=== PATIENT | male | born 1970 | race Caucasian/White ===

== ENCOUNTER 2019-10-16 15:52 | Emergency (ER) | payer MEDICARE, OTHER ==
[2019-10-16 16:02] VITALS: RESP 18
[2019-10-16 16:12] VITALS: BP 154/92; PULSE 82; TEMP 99.5
[2019-10-16] MEDS ORDERED: HYDROcodone/APAP 5-325MG 1 EACH TAB PO STA (16:46)
[2019-10-16] MEDS ORDERED: SULFAMETHOX-TMP 800-160MG 1 EACH TAB PO STA (16:54)
[2019-10-16] MEDS ORDERED: traMADol 50 MG STARTER PACK 3 TAB BTL PO STA (17:11)
--- NOTE | 2019-10-16 17:11 | ED ---
Wound/Laceration HPI - General Chief Complaint: Wound/Laceration Stated Complaint: Left arm infection Time Seen by Provider: 10/16/19 16:19 Source: patient Mode of arrival: ambulatory Limitations: no limitations - History of Present Illness Initial Comments: Patient is a 49-year-old male presenting to the emergency Department with complaints of a possible skin infection at his fistula site. Patient states receives dialysis 3 days a week, his last was yesterday. Patient finished a round of clindamycin 1 week ago for similar infection. He states his prior infection did improve. He states the pain and redness started a little bit yesterday that has increased today. He denies any fever or chills, nausea or vomiting. He states he sees Dr. Guaman as his vascular doctor. They did see him one week ago and there was no signs of infection at that point. He has no further complaints at this time. Upon arrival to the ER, his vital signs are st able. - Related Data Previous Rx's Medication Instructions Recorded Sulfamethox-Tmp 800-160Mg [Bactrim 1 each PO Q12HR 10 Days #20 tab 10/16/19 Ds] Allergies Allergy/AdvReac Type Severity Reaction Status Date / Time No Known Allergies Allergy Verified 10/16/19 16:11 Review of Systems ROS Statement: Those systems with pertinent positive or pertinent negative responses have been documented in the HPI. ROS Other: All systems not noted in ROS Statement are negative. Past Medical History Past Medical History: GERD/Reflux History of Any Multi-Drug Resistant Organisms: None Reported Past Surgical History: Section, Orthopedic Surgery Additional Past Surgical History / Comment(s): left hand carpel tunnel release. Past Psychological History: Anxiety, Depression Smoking Status: Never smoker Past Alcohol Use History: None Reported Past Drug Use History: Marijuana General Exam - General Exam Comments Initial Comments: GENERAL: Patient is well-developed and well-nourished. Patient is nontoxic and in no acute distress. HEAD: Atraumatic, normocephalic. EYES: Pupils equal round and reactive to light, extraocular movements intact, sclera anicteric, conjunctiva are normal. Eyelids were unremarkable. ENT: TMs normal, nares patent, oropharynx clear without exudates. Moist mucous membranes. NECK: Normal range of motion, supple without lymphadenopathy or JVD. LUNGS: Unlabored respirations. Breath sounds clear to auscultation bilaterally and equal. No wheezes rales or rhonchi. HEART: Regular rate and rhythm without murmurs, rubs or gallops. ABDOMEN: Soft, nontender, normoactive bowel sounds. No guarding, no rebound. No masses appreciated. : Deferred MUSCULOSKELETAL: Normal extremities with adequate strength and normal range of motion, no pitting or edema. No clubbing or cyanosis. Upper extremities are neurovascular intact. NEUROLOGICAL: Patient is alert and oriented x 3. Normal speech, normal gait. PSYCH: Normal mood, normal affect. SKIN: Warm, Dry, normal turgor. Patient has a fistula present in the right upper arm, there is an area of erythema, pain at the distal end of the fistula, no active discharge. Limitations: no limitations Course Vital Signs 10/16/19 10/16/19 15:59 16:09 Temperature 98.7 F 99.5 F Pulse Rate 92 82 Respiratory 18 18 Rate Blood Pressure 135/89 154/92 O2 Sat by Pulse 99 98 Oximetry Medical Decision Making - Medical Decision Making Patient is a 49-year-old male here for a possible infection near his fistula on the left arm. His vital signs are stable, afebrile. Patient does have some e rythema, pain with palpation at the distal end of his fistula consistent with a cellulitis. Patient was given tablet of Bactrim and [place] in the ER. We did discuss case with Dr. Keane who was okay with this plan of care. They will see him in the office and 1-2 days. We will continue patient on Bactrim and I also sent him with the tramadol starter pack. He is stable for discharge. Patient is in agreement with this plan of care. Return parameters were discussed with the patient and he verbalized understanding. Case discussed with Dr. Benjamin. Disposition Clinical Impression: Left arm cellulitis Disposition: HOME SELF-CARE Condition: Stable Instructions (If sedation given, give patient instructions): Cellulitis (ED) Additional Instructions: Please return to the Emergency Department if symptoms worsen or any other concerns. Take antibiotic as prescribed. Follow-up with vascular doctor as discussed. Prescriptions: Sulfamethox-Tmp 800-160Mg [Bactrim Ds] 1 each PO Q12HR 10 Days #20 tab Is patient prescribed a controlled substance at d/c from ED?: No Referrals: Catalino Funes MD [Primary Care Provider] - 1-2 days Vicente Guaman DO [STAFF PHYSICIAN] - 1-2 days
== END 2019-10-16 17:23 | disposition home or self-care (01) ==
LOC: EC 15:52
DX: L03.114 Cellulitis of left upper limb (principal)
CPT/HCPCS: 99283

== ENCOUNTER → 2021-04-05 | Outpatient (CLI) | payer MEDICARE ==
--- NOTE | 2021-04-08 06:59 | PE ---
EXAMINATION TYPE: PET CT fusion skull to thigh DATE OF EXAM: 04/05/2021 COMPARISON: Outside CT chest and abdomen February 19, [address] 2019 HISTORY: Solitary pulmonary nodule, recent abnormal CT. TECHNIQUE: Following the intravenous administration of mCi of F-18 FDG, whole body images are perfor med from the skull base to the midthigh. Images are reviewed on the computer in the coronal, axial, and sagittal planes. Reconstructed rotating images are created on independent workstation and review ed on the computer. A localization and attenuation correction CT is performed in conjunction with t he PET scan. SCAN: Initial Scan FINDINGS: SKULL BASE AND NECK: No suspicious hypermetabolic lesions or masses. CHEST, MEDIASTINUM, AND HILAR REGION: Corresponding to recent CT there is persistent 1.8 x 1.6 cm lef t lower lobe nodule axial image 114 is new from the 2019 study with mild hypermetabolic uptake, max S UV is 2.85. No additional areas of abnormal hypermetabolic uptake. No suspicious hypermetabolic adenopathy. ABDOMEN AND PELVIS: Mild nonspecific bowel uptake including focal uptake in right sided bowel loop an d inferior liver margin axial image 188. No adrenal masses. No areas of abnormal hypermetabolic uptak e. OSSEOUS STRUCTURES: No suspicious focal hypermetabolic lesions. OTHER CT: Moderate to severe calcified plaque bilateral carotid bulb level. Enlarged pulmonary arteries consistent with underlying pulmonary artery hypertension. Severe three-ve ssel coronary artery calcification and cardiomegaly redemonstrated. Persistent prominent collateral v essels in the left axillary region extending superficially. Overall mosaic attenuation and respiratory motion compromises on current study makes evaluation of maguire bcentimeter nodules seen on prior less well visualized on current exam. Just right of midline anterior Morgagni type hernia containing portion of transverse colon redemonstr ated. Patient has little intra-abdominal fat. Persistent moderate peripheral calcified plaque of the aorta extends into branch vessels. Enlarged prostate consistent with BPH is present. Bladder is poorl y distended with moderate concentric wall thickening presumed from outlet obstruction related to BPH. IMPRESSION: New nodule from 2019 redemonstrated with mild hypermetabolic uptake worrisome for neoplas m. No suspicious adenopathy or metastatic disease is seen.
== END | disposition home or self-care (01) ==
LOC: RADPETMAIN 11:57
PROVIDERS: ATTEND Internal Medicine Critical Care Medicine
DX: R91.1 Solitary pulmonary nodule (principal)
CPT/HCPCS: 78815; A9552

== ENCOUNTER 2021-04-17 10:22 | Day surgery (SDC) | payer MEDICARE ==
[2021-04-16 08:49] VITALS: BMI 25.0
[~2021-04-17 10:22] MED LIST: ALBUTEROL NEB (CONC) 2.5 MG/0.5 ML INHALATION ONE; ATROPINE SULFATE 0.4 MG/ML 1 ML VIAL IM ONE; LIDOCAINE 2% (PF) 20 MG/ML 5 ML VIAL INHALATION ONE; LIDOCAINE VISCOUS 300 MG/15 ML CUP MUCOUS MEM ONE; SODIUM CHLORIDE 0.9% 1,000 ML IV SCH
[2021-04-17] MEDS ORDERED: SODIUM CHLORIDE 0.9% 1,000 ML IV ONE (11:11)
--- NOTE | 2021-04-17 12:14 | CT ---
EXAMINATION TYPE: CT Chest simona Muir Protocol DATE OF EXAM: 04/17/2021 COMPARISON: PET CT April 05, 2021 HISTORY: navigational bronchoscopy. Lung nodule. CT DLP: 697 mGycm Automated exposure control for dose reduction was used. FINDINGS: Exam is for bronchoscopy planning and upper diagnostic purposes. There is moderate emphysematous hernadez ge redemonstrated with persistent mildly hypermetabolic posterior 1.4 cm left lung nodule. Enlarged p ulmonary arteries along with coronary artery calcification and/or stents are redemonstrated. Moderate multilevel spurring in the spine is again seen. IMPRESSION: As above.
[2021-04-17] MEDS ORDERED: fentaNYL (PF) 50 MCG/ML 2 ML AMP ONE (12:40)
[2021-04-17] MEDS ORDERED: MIDAZOLAM 2 MG/2 ML VIAL ONE (12:40)
[2021-04-17] MEDS ORDERED: PROPOFOL 10 MG/ML 20 ML VIAL IV ONE (12:40)
[2021-04-17] MEDS ORDERED: NEOSTIGMINE 1 MG/ML 10 ML VIAL ONE (12:40)
[2021-04-17] MEDS ORDERED: ROCURONIUM 10 MG/ML (5 ML VIAL) IV ONE (12:40)
[2021-04-17] MEDS ORDERED: GLYCOPYRROLATE 0.2 MG/ML 2 ML VIAL ONE (12:40)
[2021-04-17 13:59] VITALS: TEMP 97.2
[2021-04-17 14:20] VITALS: RESP 16
--- NOTE | 2021-04-17 14:32 | XR ---
EXAMINATION TYPE: XR chest 1V portable DATE OF EXAM: 04/17/2021 HISTORY: Shortness of breath. COMPARISON: None. TECHNIQUE: Single view of the chest is submitted. FINDINGS: Demonstrated are scattered senescent parenchymal change. Increased density right medial lung base may reflect atelectasis or developing infiltrate. Correlate clinically. The heart is stable. Hilar and mediastinal structures are within normal limits. Degenerative changes are seen of the dorsal spine. IMPRESSION: 1. Chronic changes without evidence for acute pulmonary disease.
[2021-04-17 15:00] VITALS: BP 159/83; PULSE 77
[2021-04-17 23:29] LABS: Appearance,BF Blood Tinged
== END 2021-04-17 15:13 | disposition home or self-care (01) ==
LOC: ORWHC2ENDO 10:22
PROVIDERS: ATTEND Internal Medicine Critical Care Medicine
DX: R91.1 Solitary pulmonary nodule (principal)
CPT/HCPCS: 31625; 31623; 31624; 31627; 88104; 88108; 88305; 89050; 84132; 87070; 87205; 71045; 71250; J2250; J2710; J3010; J2704

== ENCOUNTER → 2021-05-17 | Outpatient (CLI) | payer MEDICARE, OTHER ==
[2021-05-17 11:49] LABS: INR 0.9 (<1.2); Prothrombin Time 9.6 sec (9.0-12.0)
[2021-05-17 14:54] LABS: African American GFR (CKD) 11.1 (60.0-200.0); Anion Gap 15.4 mmol/L (10.00-18.00); Blood Urea Nitrogen 34.2 mg/dL (9.0-27.0); Carbon Dioxide 26.6 mmol/L (20.0-27.5); Non-African American GFR(CKD) 9.6 (60.0-200.0); Potassium 5.6 mmol/L (3.5-5.5)
[2021-05-17 15:12] LABS: Basophils # (A) 0.09 X 10*3/uL (0.00-0.10); Basophils % (A) 1.1 %; Eosinophils % (A) 1.2 %; HCT 31.2 % (39.6-50.0); HGB 10.2 g/dL (13.0-17.0); Immature Grans, Automated 0.5 %; Lymphocytes # (A) 1.96 X 10*3/uL (0.90-5.00); Lymphocytes % (A) 23.6 %; MCH 34.2 pg (27.0-32.0); MCHC 32.7 g/dL (32.0-37.0); MCV 104.7 fL (80.0-97.0); Mean Platelet Volume 10.2 fL (9.5-12.2); Monocytes # (A) 0.75 X 10*3/uL (0.20-1.00); NRBC Per 100 WBC 0 /100 WBCS (0.0-0.0); Neutrophils # (A) 5.35 X 10*3/uL (1.80-7.70); Neutrophils % (A) 64.6 %; Platelet Count 222 X 10*3/uL (140-440); RBC 2.98 X 10*6/uL (4.40-5.60); RDW 13.6 % (11.5-14.5); WBC 8.29 X 10*3/uL (4.50-10.00)
== END | disposition home or self-care (01) ==
LOC: LABPAT 10:59
PROVIDERS: ATTEND Thoracic Surgery (Cardiothoracic Vascular Surgery)
DX: Z01.812 Encounter for preprocedural laboratory examination (principal); I10 Essential (primary) hypertension; E86.0 Dehydration; R58 Hemorrhage, not elsewhere classified; R91.1 Solitary pulmonary nodule; Z79.899 Other long term (current) drug therapy
CPT/HCPCS: 80051; 82565; 82947; 84520; 85025; 85610; 85730

== ENCOUNTER 2021-05-22 08:21 | Inpatient (IN) | payer MEDICARE, OTHER ==
[2021-05-21 08:38] VITALS: BMI 25.0
[2021-05-22] MEDS ORDERED: SODIUM CHLORIDE 0.9% 1,000 ML IV ONE ×2 (09:15→09:18)
[2021-05-22] MEDS ORDERED: ONDANSETRON 4 MG/2 ML VIAL IVP ONE (09:19)
[2021-05-22 09:27] LABS: Basophils # (A) 0.1 k/uL (0-0.2); Basophils % (A) 1 %; Eosinophils # (A) 0.2 k/uL (0-0.7); Eosinophils % (A) 2 %; HCT 36.1 % (39.0-53.0); HGB 11.9 gm/dL (13.0-17.5); Lymphocytes # (A) 1.9 k/uL (1.0-4.8); Lymphocytes % (A) 25 %; MCH 34.4 pg (25.0-35.0); MCHC 33.1 g/dL (31.0-37.0); MCV 104.1 fL (80.0-100.0); Macrocytosis Slight; Mean Platelet Volume 7.6; Monocytes # (A) 0.5 k/uL (0-1.0); Monocytes % (A) 7 %; Neutrophils % (A) 64 %; Platelet Count 228 k/uL (150-450); RBC 3.46 m/uL (4.30-5.90); RDW 13.3 % (11.5-15.5); WBC 7.8 k/uL (3.8-10.6)
[2021-05-22] MEDS ORDERED: ONDANSETRON 4 MG/2 ML VIAL ONE (09:27)
[2021-05-22 09:50] LABS: Calcium 8.7 mg/dL (8.4-10.2); Potassium 5.7 mmol/L (3.5-5.1)
[2021-05-22] MEDS ORDERED: ALBUTEROL NEBULIZED 2.5 MG/3 ML INHALATION STA (10:09)
[2021-05-22] MEDS ORDERED: MIDAZOLAM 2 MG/2 ML VIAL ONE (10:46)
[2021-05-22] MEDS ORDERED: ROCURONIUM 10 MG/ML (5 ML VIAL) IV ONE (10:46)
[2021-05-22] MEDS ORDERED: fentaNYL (PF) 50 MCG/ML 2 ML AMP ONE (10:46)
[2021-05-22] MEDS ORDERED: PROPOFOL 10 MG/ML 20 ML VIAL IV ONE (10:46)
[2021-05-22] MEDS ORDERED: DEXAMETHASONE SOD PHOSPHATE 10 MG/ML 1 ML VIAL ONE (10:46)
[2021-05-22] MEDS ORDERED: HYDROmorphone (PF) 1 MG/ML ONE (10:46)
[2021-05-22] MEDS ORDERED: LIDOCAINE 1% INJ 10MG/ML (20 ML MDV) ONE (10:46)
[2021-05-22] MEDS ORDERED: BUPIVACAINE (PF) 0.5% 30 ML VIAL SQ ONE ×2 (11:35→12:27)
[2021-05-22] MEDS ORDERED: SODIUM CHLORIDE 0.9% 500 ML 500 ML IV ONE (12:00)
--- NOTE | 2021-05-22 13:38 | XR ---
EXAMINATION TYPE: XR chest 1V portable DATE OF EXAM: 05/22/2021 COMPARISON: 04/17/2021 INDICATION: Post VATS TECHNIQUE: Single frontal view of the chest is obtained. FINDINGS: The heart size is mildly prominent. The pulmonary vasculature is normal. Left lung base increased density is present. Correlate for eventration or hernia. Atelectasis or pneu monia can be considered. Chest tube is present on the left. Pneumothorax is not identified. IMPRESSION: 1. Left-sided chest tube. No pneumothorax is evident. 2. Right lower lobe infiltrate or eventration of the diaphragm.
[2021-05-22] MEDS ORDERED: HYDROmorphone 0.5 MG/0.5 ML SYRINGE IVP ONE (14:05)
--- NOTE | 2021-05-22 14:17 | P.OP ---
Date of Procedure: 05/22/21 Preoperative Diagnosis: Left lower lobe pulmonary nodule suspicious for malignancy, history of melanoma of right nose. Postoperative Diagnosis: Same Procedure(s) Performed: Right thoracoscopy, wedge resection mass left lower lobe Anesthesia: GEMINIA Surgeon: Al Kaur Estimated Blood Loss (ml): 10 IV fluids (ml): 500 Urine output (ml): 0 Pathology: other (Wedge resection left lower lobe sent for frozen section and permanent section) Condition: stable Disposition: PACU Indications for Procedure: 51-year-old male with long-term history of smoking. He had a known adenoma resected from his nose less than 2 years prior. He was found to have a new left lower lobe nodule. Resection was requested by Dr. Carrillo. Patient has not had a needle biopsy. Bronchoscopy was nondiagnostic. He has no evidence of metastatic disease other than the single nodule. This is not clear whether this represents primary lung cancer for which the patient is clearly at risk or solitary metastasis from his melanoma. The patient was offered needle biopsy but did not want to undergo a procedure that did not involve anesthetic. Wedge resection was therefore recommended and will be more likely to be completely diagnostic. It was explained to the patient that should this prove to be lung cancer, the patient would need further workup and likely a left lower lobectomy. Elective surgery was scheduled. Operative Findings: Intubation was challenging. Successfully intubated the patient using the glide scope and passing a pediatric bronchoscope through the cords under direct visualization with the glide scope and then advancing 41 double-lumen endotracheal tube over the bronchoscope and into the airway. Nodule was identified in the left lower lobe. It was fairly deep and posterior. Initial wedge resection did not reveal the nodule and further wedge resection did reveal the nodule. Nodule was sent for frozen section and was probably positive for malignancy. It could not be determined with melanoma or lung cancer on frozen section. Margins were grossly negative. No other lung nodules were noted. Description of Procedure: Patient was brought to the operating room and placed supine on the operating table. An Olympus anesthesia was induced. Initial attempts at intubation were unsuccessful. An 8 endotracheal tube was placed successfully into the airway and the patient was ventilated. Using the glide scope and direct visualization we attempted to exchange the 8 endotracheal tube for a 41 dual double-lumen tube with the tube exchanger was not long enough. We then tried to pass the 41 endotracheal tube but could not pass the cords despite good visualization. We bagged the patient and then successfully intubated the patient by advancing 41 endotracheal tube over a bronchoscope placed through the cords under visualization with the glide scope. Tube was appropriately positioned under bronchoscopic visualization and secured. Patient was turned in the right lateral decubitus position and the left chest was sterilely prepped and draped. 3 one-inch incisions were made in the left chest inferiorly and anteriorly. The lung was explored. It was very difficult to accurately assess the exact location of the mass. A generous wedge resection of the left lower lobe was performed in the area suspected to have the mass in on removal of this there was no evidence of the mass in the wedge resection. Multiple firings of Endo VICKIE medium thick stapler were used for this wedge resection and it was removed in an Endo Catch bag. Following this further resection was performed deeper into the left upper lobe posteriorly and a thick stapler was used for these firings. A second wedge resection of the lung was then removed and the nodule was evident within it. It was cut on the back table and a small portion set aside for possible culture and then the lesion was sent for frozen section. It returned positive for malignancy. We therefore did not send any cultures. 28-St Helenian chest tube was placed through separate stab incision and positioned posterior apically. The lung was inflated under thoracoscopic visualization. Incisions were closed with layers of Vicryl suture. In glue and dry sterile dressings were applied. Chest tube was secured with an 0 silk suture and chest tube dressing applied. Patient was turned supine and extubated and transferred to recovery in stable condition.
[2021-05-22] MEDS ORDERED: IPRATROPIUM-ALBUTEROL 3 ML NEB IH PRN (14:31)
[2021-05-22] MEDS ORDERED: ACETAMINOPHEN TAB 325 MG TAB PO PRN (14:31)
[2021-05-22] MEDS ORDERED: ONDANSETRON 4 MG/2 ML VIAL IVP PRN (14:31)
[2021-05-22] MEDS: DEXTROSE 5%-0.45% NACL 1,000 ML IV SCH (16:00)
[2021-05-22] MEDS: SEVELAMER 800 MG TAB PO SCH ×2 (16:00→16:02)
[2021-05-22] MEDS: traMADol 50 MG TAB PO PRN (16:03)
[2021-05-22] MEDS: HEPARIN SODIUM,PORCINE/PF 5,000 UNIT/0.5 ML SYRINGE SQ SCH ×2 (16:03→23:13)
[2021-05-22] MEDS: NICOTINE 14MG/24HR PATCH TRANSDERM SCH (17:06)
[2021-05-22] MEDS: HYDROmorphone 0.5 MG/0.5 ML SYRINGE IVP PRN ×2 (17:07→23:13)
[2021-05-22] MEDS ORDERED: traMADol 50 MG TAB PO SCH (18:00)
[2021-05-22] MEDS: KETOROLAC 15 MG/ML 1 ML VIAL IVP PRN (18:46)
[2021-05-22] MEDS: IPRATROPIUM-ALBUTEROL 3 ML NEB IH SCH ×2 (19:03→19:04)
[2021-05-23] MEDS: traMADol 50 MG TAB PO PRN ×4 (03:02→23:13)
[2021-05-23] MEDS: KETOROLAC 15 MG/ML 1 ML VIAL IVP PRN ×2 (06:44→19:45)
[2021-05-23] MEDS: SEVELAMER 800 MG TAB PO SCH ×3 (06:44→16:58)
[2021-05-23 07:54] LABS: Basophils # (A) 0.1 k/uL (0-0.2); Basophils % (A) 1 %; Eosinophils # (A) 0.1 k/uL (0-0.7); Eosinophils % (A) 1 %; HCT 32.5 % (39.0-53.0); Lymphocytes # (A) 1.6 k/uL (1.0-4.8); Lymphocytes % (A) 17 %; MCH 35.2 pg (25.0-35.0); MCHC 33.8 g/dL (31.0-37.0); MCV 104.1 fL (80.0-100.0); Macrocytosis Slight; Mean Platelet Volume 7.6; Monocytes # (A) 0.5 k/uL (0-1.0); Monocytes % (A) 6 %; Neutrophils # (A) 6.6 k/uL (1.3-7.7); Neutrophils % (A) 74 %; Platelet Count 199 k/uL (150-450); RBC 3.12 m/uL (4.30-5.90); RDW 13.3 % (11.5-15.5)
[2021-05-23] MEDS: HEPARIN SODIUM,PORCINE/PF 5,000 UNIT/0.5 ML SYRINGE SQ SCH ×3 (08:05→23:13)
[2021-05-23] MEDS: NICOTINE 14MG/24HR PATCH TRANSDERM SCH (08:05)
[2021-05-23] MEDS: LOSARTAN 25 MG TAB PO SCH (08:05)
[2021-05-23 08:10] LABS: Calcium 8.4 mg/dL (8.4-10.2); Potassium 5.7 mmol/L (3.5-5.1)
[2021-05-23] MEDS: IPRATROPIUM-ALBUTEROL 3 ML NEB IH SCH ×4 (08:51→20:57)
[2021-05-23] MEDS ORDERED: LIDOCAINE-PRILOCAINE 2.5-2.5% CREAM 5 GM TUBE TOPICAL STA (09:23)
[2021-05-23] MEDS: HYDROmorphone 0.5 MG/0.5 ML SYRINGE IVP PRN (09:48)
--- NOTE | 2021-05-23 09:49 | XR ---
EXAMINATION TYPE: XR chest 1V DATE OF EXAM: 05/23/2021 COMPARISON: 05/22/2021 INDICATION: Post VATS TECHNIQUE: Single frontal view of the chest is obtained. FINDINGS: The heart size is normal. The pulmonary vasculature is normal. Appears to be a focal eventration of the air-filled loop of bowel in right lower medial diaphragm. Ap pears improved from prior study. Underlying pneumonia is considered less likely. Left-sided chest tub e remains in position. Small left apical pneumothorax is identified. IMPRESSION: 1. Small left apical pneumothorax now identified. A Red level critical message alert has been initiated for Bre Dinero via the [employer] Results System on 05/23/2021 9:46 AM. This message alert has been sent to Bre Dinero via the prefe rences provided by the clinician for the receipt of Radiology Critical Findings. Message ID [id number].
--- NOTE | 2021-05-23 10:52 | P.PN ---
Subjective Progress Note Date: 05/23/21 Principal diagnosis: Left lower lobe pulmonary nodule suspicious for malignancy. Previous medical history of melanoma of the right nose with resection little over a year ago, current tobacco dependence, hypertension, chronic renal failure on hemodialysis Thursday//Thursday, arthritis. Vaccinated against Covid POD #1 right thoracoscopy, wedge resection mass left lower lobe The patient was seen and examined this morning sitting up in bed in no acute distress although does still complain of significant pain from surgery. States he is unable to take deep breaths due to pain. Remains hemodynamically stable. Minimal output overnight in the chest tube, no air leak present, was placed to waterseal yesterday. Currently about to receive hemodialysis. No other new concerns. Objective - Vital Signs Vital signs: Vital Signs Temp 97.9 F 05/23/21 08:00 Pulse 81 05/23/21 08:00 Resp 17 05/23/21 08:00 BP 160/78 05/23/21 08:00 Pulse Ox 97 05/23/21 08:00 Intake & Output 05/22/21 05/23/21 05/23/21 18:59 06:59 18:59 Intake Total 1600 Output Total 10 200 Balance 1590 -200 Weight 80.9 kg Intake: IV 1600 Output: Chest Tube Drainage 200 Chest Tube Left Lateral 200 Chest Estimated Blood Loss 10 - Exam CONSTITUTIONAL: Appears comfortable, cooperative, no acute distress RESPIRATORY: Lungs sounds diminished bilaterally. Respirations even, nonlabored. Currently on room air with oxygen saturation 97%. Able to achieve 500 mL on incentive spirometry. Strong cough. CARDIOVASCULAR: S1, S2 present. Regular rate and rhythm, sinus rhythm on telemetry. Palpable peripheral pulses bilaterally. No edema present. No calf pain or tenderness noted. GASTROINTESTINAL: Abdomen soft, nontender, nondistended. Active bowel sounds present 4 quadrants. Tolerating diet. Positive bowel movement. GENITOURINARY: Left upper forearm AV fistula present for dialysis INTEGUMENTARY: Skin is warm and dry with evidence of good perfusion. NEUROLOGIC: Cranial nerves II through XII intact MUSKULOSKELETAL: Able to move all extremities, strength equal bilaterally, gait normal PSYCHIATRIC: Alert and oriented to person place and time, appropriate affect, intact judgment and insight INVASIVE LINES AND TUBES: Left pleural chest tube present to waterseal, 50 mL serosanguineous drainage overnight, 300 mL since surgery - Allied health notes Allied health notes reviewed: nursing - Labs CBC & Chem 7: 05/23/21 07:32 05/23/21 07:32 Labs: Abnormal Lab Results - Last 24 Hours (Table) 05/23/21 05/23/21 Range/Units 07:32 07:32 RBC 3.12 L (4.30-5.90) m/uL Hgb 11.0 L (13.0-17.5) gm/dL Hct 32.5 L (39.0-53.0) % MCV 104.1 H (80.0-100.0) fL MCH 35.2 H (25.0-35.0) pg Sodium 135 L (137-145) mmol/L Potassium 5.7 H (3.5-5.1) mmol/L BUN 59 H (9-20) mg/dL Creatinine 9.24 H* (0.66-1.25) mg/dL - Imaging and Cardiology Chest x-ray: report reviewed, image reviewed Assessment and Plan Assessment: 1. Left lower lobe pulmonary nodule suspicious for malignancy, status post right thoracoscopy, wedge resection of mass left lower lobe 2. History of melanoma of the right nose with resection little over a year ago 3. Current tobacco dependence 4. Hypertension 5. Chronic renal failure on hemodialysis Thursday//Thursday 6. Arthritis 7. Vaccinated against Covid Plan: 1. Left pleural chest tube discontinued without incident, pathology still pending 2. To receive dialysis today, continue dialysis Thursday//Thursday as per his normal schedule 3. Increase activity, ambulate as tolerated 4. Will repeat chest x-ray later today versus tomorrow 5. Pain control with current medication regimen 6. Incentive spirometry encouraged 7. Smoking cessation counseling offered, encourage complete smoking cessation. Placed on nicotine patch 8. Discharge planning in progress. Anticipate discharge to home later today versus tomorrow morning
[2021-05-23] MEDS: DEXTROSE 5%-0.45% NACL 1,000 ML IV SCH (11:02)
--- NOTE | 2021-05-23 11:36 | P.NPCON ---
History of Present Illness - Reason for Consult end stage renal disease - History of Present Illness Patient is a 50-year-old male with end-stage renal disease on hemodialysis on a Thursday schedule. He was admitted to the hospital for thoracoscopy and wedge resection of the left lower lung. Patient was noted to have a suspicious lung nodule. This morning patient is doing well. He has not eaten yet. Chest tube came out this morning. Patient will be dialyzed today No fever cough nausea vomiting abdominal pain or diarrhea Past Medical History Past Medical History: Cancer, Dialysis, GERD/Reflux, Hypertension, Renal Disease Additional Past Medical History / Comment(s): Kidney disease, hx. of skin cancer. hemo dialysis [facility] History of Any Multi-Drug Resistant Organisms: None Reported Past Surgical History: Back Surgery, Orthopedic Surgery Additional Past Surgical History / Comment(s): left hand carpel tunnel release. Fistula left upper arm for dialysis. bronchoscopy, cervical fusion Past Anesthesia/Blood Transfusion Reactions: No Reported Reaction Smoking Status: Current every day smoker - Past Family History Mother Family Medical History: No Reported History Medications and Allergies Home Medications Medication Instructions Recorded Confirmed Type Sevelamer [Renvela] 1,600 mg PO AC-TID 04/16/21 05/22/21 History Auryxia 210 mg PO TID 04/17/21 05/22/21 History Losartan [Cozaar] 25 mg PO DAILY 04/17/21 05/22/21 History Allergies Allergy/AdvReac Type Severity Reaction Status Date / Time No Known Allergies Allergy Verified 05/22/21 09:09 Physical Exam Vitals: Vital Signs Temp Pulse Pulse Resp BP Pulse Ox 05/23/21 08:00 97.9 F 81 17 160/78 97 05/23/21 03:17 98.5 F 80 20 148/78 96 05/23/21 01:32 87 05/22/21 23:11 87 18 146/79 95 05/22/21 20:00 88 20 05/22/21 19:27 98.7 F 88 20 165/85 97 05/22/21 19:18 80 05/22/21 19:04 84 05/22/21 18:37 89 22 05/22/21 16:00 98.3 F 89 22 163/88 94 L 05/22/21 14:32 89 16 133/67 99 05/22/21 14:16 86 16 149/70 100 05/22/21 14:00 85 16 140/72 100 05/22/21 13:44 85 16 156/73 100 05/22/21 13:26 85 16 154/73 100 05/22/21 13:11 86 16 168/77 100 05/22/21 12:57 96.7 F L 85 16 154/73 100 Intake and Output 05/22/21 05/23/21 05/23/21 22:59 06:59 14:59 Output Total 100 100 Balance -100 -100 Output: Chest Tube Drainage 100 100 Chest Tube Left Lateral 100 100 Chest Patient is awake, comfortable, not in any acute distress Examination of the heart S1 and S2 Examination lungs bilateral breath sounds are heard Abdomen is soft nontender Examination lower extremities shows no evidence of edema in his exam grossly intact Results - Lab Results Most recent lab results Calcium 8.4 mg/dL (8.4-10.2) 05/23/21 07:32 05/23/21 07:32 05/23/21 07:32 Assessment and Plan Assessment: 1. End-stage renal disease on hemodialysis on a Thursday schedule via left arm AV fistula 2. Left lung nodule status post thoracoscopy and wedge resection of the left lower lobe 3. CK D mineral bone disorder 4. Tobacco dependence 5. Hypertension with CK D stage 5 Plan: Hemodialysis today. Goal UF half to 1 L Patient is stable for discharge if cleared from cardiac thoracic surgery.
--- NOTE | 2021-05-23 12:42 | P.CNPUL ---
History of Present Illness Consult date: 05/23/21 Requesting physician: Al Kaur Reason for consult: abnormal CXR/CT Chief complaint: Left lower lobe pulmonary nodule History of present illness: This is a very pleasant 51-year-old male patient with known history of chronic tobacco dependence, hypertension, chronic renal failure receiving hemodialysis Thursday', melanoma resected on his nose 2 years ago. He was recently found to have 80 left lower lobe pulmonary nodule. Suspicious for malignancy. He did undergo navigational bronchoscopy that was nondiagnostic. He follows with Dr. Lentz in our clinic who referred him to Dr. Kaur for a wedge resection of the mass of the left lower lobe. He did undergo that p rocedure yesterday. His chest x-ray showed a tiny left apical pneumothorax. Left-sided chest tube was in good position and subsequently discuss this morning without incident. He is currently receiving hemodialysis. He sitting up in bed. Awake and alert in no acute distress. He is maintaining good O2 saturations in the mid 90s on room air. He's been afebrile. Hemodynamically stable. He is working with the incentive spirometer. He remains on bronchodilators. Heparin for DVT prophylaxis. His pain is well controlled. NicoDerm patch in place. White count 9.0. Hemoglobin 11.0. Platelets 199. Sodium 135. Potassium 5.7. BUN 59. Creatinine 9.24. Review of Systems REVIEW OF SYSTEMS: CONSTITUTIONAL: Denies any recent significant weight loss or weight gain. EYES: Denies change in vision. EARS, NOSE, MOUTH, THROAT: Denies headaches, denies sore throat. CARDIOVASCULAR: Left surgical site pain, no palpitations or syncopal episodes. RESPIRATORY: Denies shortness of breath, cough, congestion or hemoptysis. GASTROINTESTINAL: Denies change in appetite, denies abdominal pain GENITOURINARY: Denies hematuria, denies infections. MUSKULOSKELETAL: Denies pain, denies swelling. INTEGUMENTARY: Denies rash, denies eczema. NEUROLOGICAL: Denies recent memory loss, no recent seizure activity. PSYCHIATRIC: Denies anxiety, denies depression. HEMATOLOGIC/LYMPHATIC: Denies anemia, denies enlarged lymph nodes. Past Medical History Past Medical History: Cancer, Dialysis, GERD/Reflux, Hypertension, Renal Disease Additional Past Medical History / Comment(s): Kidney disease, hx. of skin cancer. hemo dialysis [facility] History of Any Multi-Drug Resistant Organisms: None Reported Past Surgical History: Back Surgery, Orthopedic Surgery Additional Past Surgical History / Comment(s): left hand carpel tunnel release. Fistula left upper arm for dialysis. bronchoscopy, cervical fusion Past Anesthesia/Blood Transfusion Reactions: No Reported Reaction Smoking Status: Current every day smoker - Past Family History Mother Family Medical History: No Reported History Medications and Allergies Home Medications Medication Instructions Recorded Confirmed Type Sevelamer [Renvela] 1,600 mg PO AC-TID 04/16/21 05/22/21 History Auryxia 210 mg PO TID 04/17/21 05/22/21 History Losartan [Cozaar] 25 mg PO DAILY 04/17/21 05/22/21 History Allergies Allergy/AdvReac Type Severity Reaction Status Date / Time No Known Allergies Allergy Verified 05/22/21 09:09 Physical Exam Vitals: Vital Signs Temp Pulse Pulse Resp BP Pulse Ox 05/23/21 08:00 97.9 F 81 17 160/78 97 05/23/21 03:17 98.5 F 80 20 148/78 96 05/23/21 01:32 87 05/22/21 23:11 87 18 146/79 95 05/22/21 20:00 88 20 05/22/21 19:27 98.7 F 88 20 165/85 97 05/22/21 19:18 80 05/22/21 19:04 84 05/22/21 18:37 89 22 05/22/21 16:00 98.3 F 89 22 163/88 94 L 05/22/21 14:32 89 16 133/67 99 05/22/21 14:16 86 16 149/70 100 05/22/21 14:00 85 16 140/72 100 05/22/21 13:44 85 16 156/73 100 05/22/21 13:26 85 16 154/73 100 05/22/21 13:11 86 16 168/77 100 05/22/21 12:57 96.7 F L 85 16 154/73 100 Intake and Output 05/22/21 05/23/21 05/23/21 22:59 06:59 14:59 Output Total 100 100 Balance -100 -100 Output: Chest Tube Drainage 100 100 Chest Tube Left Lateral 100 100 Chest GENERAL EXAM: Alert, pleasant 51-year-old male patient, on room air, fairly comfortable in no apparent distress. HEAD: Normocephalic. EYES: Normal reaction of pupils, equal size. NOSE: Clear with pink turbinates. THROAT: No erythema or exudates. NECK: No masses, no JVD. CHEST: No chest wall deformity. Surgical dressing dry and intact. LUNGS: Equal air entry with no crackles, wheeze, rhonchi or dullness. Diminished. CVS: S1 and S2 normal with no audible murmur, regular rhythm. ABDOMEN: No hepatosplenomegaly, normal bowel sounds, no guarding or rigidity. SPINE: No scoliosis or deformity SKIN: No rashes CENTRAL NERVOUS SYSTEM: No focal deficits, tone is normal in all 4 extremities. EXTREMITIES: Left upper extremity AV fistula in place. There is no peripheral edema. No clubbing, no cyanosis. Peripheral pulses are intact. Results - Laboratory Findings CBC and BMP: 05/23/21 07:32 05/23/21 07:32 Abnormal lab findings: Abnormal Labs 05/22/21 05/22/21 05/23/21 09:15 09:15 07:32 RBC 3.46 L 3.12 L Hgb 11.9 L 11.0 L Hct 36.1 L 32.5 L MCV 104.1 H 104.1 H MCH 35.2 H Sodium 135 L Potassium 5.7 H Chloride 95 L BUN 44 H Creatinine 7.34 H* 05/23/21 07:32 RBC Hgb Hct MCV MCH Sodium 135 L Potassium 5.7 H Chloride BUN 59 H Creatinine 9.24 H* - Diagnostic Findings Chest x-ray: image reviewed Assessment and Plan Assessment: 1 Left lower lobe pulmonary nodule suspicious for malignancy, status post right thoracoscopy with wedge resection of the left lower lobe. Postoperative day #1 2 History of chronic and ongoing tobacco dependence 3 History of melanoma resected from the right nose 4 Chronic renal failure receiving hemodialysis Thursday 5 Hypertension 6 History of arthritis Plan: The patient was seen and evaluated Chest x-ray and labs reviewed Encouraged increased use of the incentive spirometer Encouraged to increase his activity as tolerated Left-sided chest tube removed per CT services Follow up chest x-ray pending Home once cleared by CT services Follow up with Dr. Lentz in our office in 1-2 weeks' I have personally seen and examined the patient, performed the documentation and the assessment and plan as written. Number of minutes spent on the visit: 20.
[2021-05-23 23:29] VITALS: RESP 18
[2021-05-24] MEDS: DEXTROSE 5%-0.45% NACL 1,000 ML IV SCH (00:11)
[2021-05-24 03:19] VITALS: PULSE 81
[2021-05-24] MEDS: SEVELAMER 800 MG TAB PO SCH (06:25)
[2021-05-24] MEDS: traMADol 50 MG TAB PO PRN (06:25)
--- NOTE | 2021-05-24 07:24 | XR ---
EXAMINATION TYPE: XR chest 2V DATE OF EXAM: 05/24/2021 COMPARISON: Chest x-ray from yesterday HISTORY: Post wedge resection. TECHNIQUE: Frontal and lateral views of the chest are obtained. FINDINGS: Tiny left apical pneumothorax remains present though slightly less well seen. Interval rem oval of left-sided chest tube. Patchy left basilar opacity consistent with atelectasis again seen. Alba rgical change cervical spine redemonstrated. Right lung remains predominantly clear with elevated jordon ntrated anterior aspect right hemidiaphragm. Cardiac silhouette size stable and within normal limits. Multilevel spurring and spine is present. IMPRESSION: Stable tiny left apical pneumothorax despite left-sided chest tube removal. Stable left basilar small to tiny pleural effusion and associated basilar atelectasis.
[2021-05-24] MEDS: IPRATROPIUM-ALBUTEROL 3 ML NEB IH SCH (08:32)
--- NOTE | 2021-05-24 09:14 | P.PN ---
Subjective Progress Note Date: 05/24/21 Principal diagnosis: Left lower lobe pulmonary nodule suspicious for malignancy. Previous medical history of melanoma of the right nose with resection little over a year ago, current tobacco dependence, hypertension, chronic renal failure on hemodialysis Thursday//Thursday, arthritis. Vaccinated against Covid POD #2 right thoracoscopy, wedge resection mass left lower lobe The patient was seen and examined this morning sitting up in bed in no acute distress. States pain is controlled on current medication regimen after chest tube removal yesterday. Remains hemodynamically stable. Received hemodialysis yesterday. Chest x-ray reviewed this morning, stable. No new concerns. Objective - Vital Signs Vital signs: Vital Signs Temp 98.4 F 05/24/21 03:10 Pulse 81 05/24/21 03:10 Resp 18 05/24/21 03:10 BP 157/78 05/24/21 03:10 Pulse Ox 96 05/24/21 03:10 Intake & Output 05/23/21 05/24/21 05/24/21 18:59 06:59 18:59 Intake Total 300 240 Output Total 1000 250 Balance -700 -10 Intake: Oral 0 240 Hemodialysis 300 Output: Urine 200 250 Hemodialysis 800 - Exam CONSTITUTIONAL: Appears comfortable, cooperative, no acute distress RESPIRATORY: Lungs sounds diminished bilaterally. Respirations even, nonlabored. Currently on room air with oxygen saturation 96%. Able to achieve 2000 mL on incentive spirometry. Strong cough. CARDIOVASCULAR: S1, S2 present. Regular rate and rhythm, sinus rhythm on telemetry. Palpable peripheral pulses bilaterally. No edema present. No calf pain or tenderness noted. GASTROINTESTINAL: Abdomen soft, nontender, nondistended. Active bowel sounds present 4 quadrants. Tolerating diet. GENITOURINARY: Left upper forearm AV fistula present for dialysis INTEGUMENTARY: Skin is warm and dry with evidence of good perfusion. NEUROLOGIC: Cranial nerves II through XII intact MUSKULOSKELETAL: Able to move all extremities, strength equal bilaterally, gait normal PSYCHIATRIC: Alert and oriented to person place and time, appropriate affect, intact judgment and insight - Allied health notes Allied health notes reviewed: nursing - Labs CBC & Chem 7: 05/24/21 08:54 05/24/21 08:54 - Imaging and Cardiology Chest x-ray: report reviewed, image reviewed Assessment and Plan Assessment: 1. Left lower lobe pulmonary nodule suspicious for malignancy, status post r ight thoracoscopy, wedge resection of mass left lower lobe 2. History of melanoma of the right nose with resection little over a year ago 3. Current tobacco dependence 4. Hypertension 5. Chronic renal failure on hemodialysis Thursday//Thursday 6. Arthritis 7. Vaccinated against Covid Plan: 1. Chest x-ray reviewed, stable 2. Continue dialysis Thursday//Thursday as per his normal schedule 3. Increase activity, ambulate as tolerated 4. Pain control with current medication regimen 5. Incentive spirometry encouraged 6. Smoking cessation counseling offered, encourage complete smoking cessation. Placed on nicotine patch 7. Discharge planning in progress. Anticipate discharge to home today
[2021-05-24] MEDS: LOSARTAN 25 MG TAB PO SCH (09:26)
[2021-05-24] MEDS: HEPARIN SODIUM,PORCINE/PF 5,000 UNIT/0.5 ML SYRINGE SQ SCH (09:26)
[2021-05-24 09:50] LABS: HCT 32.2 % (39.0-53.0); HGB 10.4 gm/dL (13.0-17.5); MCH 33.6 pg (25.0-35.0); MCHC 32.2 g/dL (31.0-37.0); MCV 104.4 fL (80.0-100.0); Macrocytosis Slight; Mean Platelet Volume 7.7; Platelet Count 188 k/uL (150-450); RBC 3.08 m/uL (4.30-5.90); RDW 13.2 % (11.5-15.5); WBC 7.2 k/uL (3.8-10.6)
[2021-05-24 09:59] LABS: Calcium 8.8 mg/dL (8.4-10.2); Potassium 5.2 mmol/L (3.5-5.1)
[2021-05-24 10:21] VITALS: BP 149/80; TEMP 98.1
[2021-05-24] MEDS: NICOTINE 14MG/24HR PATCH TRANSDERM SCH (10:48)
--- NOTE | 2021-05-24 12:19 | P.PN ---
Subjective Progress Note Date: 05/24/21 Principal diagnosis: Left lower lobe pulmonary nodule This is a very pleasant 51-year-old male patient with known history of chronic tobacco dependence, hypertension, chronic renal failure receiving hemodialysis Thursday', melanoma resected on his nose 2 years ago. He was recently found to have 80 left lower lobe pulmonary nodule. Suspicious for malignancy. He did undergo navigational bronchoscopy that was nondiagnostic. He follows with Dr. Lentz in our clinic who referred him to Dr. Kaur for a wedge resection of the mass of the left lower lobe. He did undergo that procedure yesterday. His chest x-ray showed a tiny left apical pneumothorax. Left-sided chest tube was in good position and subsequently discuss this morning without incident. He is currently receiving hemodialysis. He sitting up in bed. Awake and alert in no acute distress. He is maintaining good O2 saturations in the mid 90s on room air. He's been afebrile. Hemodynamically stable. He is working with the incentive spirometer. He remains on bronchodilators. Heparin for DVT prophylaxis. His pain is well controlled. NicoDerm patch in place. White count 9.0. Hemoglobin 11.0. Platelets 199. Sodium 135. Potassium 5.7. BUN 59. Creatinine 9.24. On 05/24/2021 patient seen in follow-up on selective care unit, he status post right thoracoscopy and left lower lobe wedge resection for left lower lobe pulmonary nodule that was suspicious for malignancy. Patient's left-sided chest tube was removed yesterday, today's chest x-ray shows stable tiny left apical pn eumothorax, and stable left basilar small to tiny pleural effusion and associated basilar atelectasis. No acute complaints or events overnight, room air pulse ox is 95-96%, patient is resting comfortably, vital signs have been stable no fever or chills, left lateral chest surgical incision is clean dry and intact, covered with a surgical dressing. He is working on incentive spirometer. He is achieving 1.5-2.5 L on the today. Today's labs have been reviewed, white blood cell count is 7.2, hemoglobin is 10.4, sodium is 134, potassium is 5.2, chloride is 99, BUN is 47, creatinine is 7.7. Objective - Vital Signs Vital signs: Vital Signs Temp 98.1 F 05/24/21 08:00 Pulse 81 05/24/21 08:00 Resp 18 05/24/21 08:00 BP 149/80 05/24/21 08:00 Pulse Ox 95 05/24/21 08:00 Intake & Output 05/23/21 05/24/21 05/24/21 18:59 06:59 18:59 Intake Total 300 240 Output Total 1000 250 Balance -700 -10 Intake: Oral 0 240 Hemodialysis 300 Output: Urine 200 250 Hemodialysis 800 - Exam GENERAL EXAM: Alert, very pleasant, 51-year-old white male, on room air awake alert oriented 3, pulse ox is 96% on room air, comfortable in no apparent distress. HEAD: Normocephalic/atraumatic. EYES: Normal reaction of pupils, equal size. Conjunctiva pink, sclera white. NOSE: Clear with pink turbinates. THROAT: No erythema or exudates. NECK: No masses, no JVD, no thyroid enlargement, no adenopathy. CHEST: No chest wall deformity. Symmetrical expansion. LUNGS: Equal air entry with no crackles, wheeze, rhonchi or dullness. Left lateral chest surgical incisions covered with a surgical dressing clean dry and intact, left-sided chest tube was discontinued yesterday on 05/23/2021 CVS: Regular rate and rhythm, normal S1 and S2, no gallops, no murmurs, no rubs. Left upper arm AV shunt ABDOMEN: Soft, nontender. No hepatosplenomegaly, normal bowel sounds, no guarding or rigidity. EXTREMITIES: No clubbing, no edema, no cyanosis, 2+ pulses and upper and lower extremities. MUSCULOSKELETAL: Muscle strength and tone normal. SPINE: No scoliosis or deformity SKIN: No rashes CENTRAL NERVOUS SYSTEM: Alert and oriented -3. No focal deficits, tone is normal in all 4 extremities. PSYCHIATRIC: Alert and oriented -3. Appropriate affect. Intact judgment and insight. - Labs CBC & Chem 7: 05/24/21 08:54 05/24/21 08:54 Labs: Abnormal Lab Results - Last 24 Hours (Table) 05/24/21 05/24/21 Range/Units 08:54 08:54 RBC 3.08 L (4.30-5.90) m/uL Hgb 10.4 L (13.0-17.5) gm/dL Hct 32.2 L (39.0-53.0) % MCV 104.4 H (80.0-100.0) fL Sodium 134 L (137-145) mmol/L Potassium 5.2 H (3.5-5.1) mmol/L BUN 47 H (9-20) mg/dL Creatinine 7.70 H* (0.66-1.25) mg/dL Glucose 108 H (74-99) mg/dL Assessment and Plan Plan: Assessment: #1. Left lower lobe pulmonary nodule, suspicious for malignancy, status post right thoracoscopy with wedge resection of the left lower lobe, postoperative day #2 #2. Small left apical pneumothorax, has remained stable even after removal of the left-sided chest tube #3. History of chronic and ongoing tobacco dependence #4. History of melanoma resected from the right nose #5. End-stage renal failure on hemodialysis on Thursday schedule #6. Hypertension #7. History of osteoarthritis Plan: Patient is doing well Today's chest x-ray has been reviewed showing stable small left apical pneumothorax, Surgical biopsy results are still pending No acute events overnight Continue encouraging deep breathing and coughing and incentive spirometry use Patient is being discharged home today Outpatient follow-up with Dr. Lentz in the office in one week I have personally seen and examined the patient, performed the documentation and the assessment and plan as written. Number of minutes spent on the visit: [10] Time with Patient: Less than 30
--- NOTE | 2021-05-24 12:22 | P.DS ---
Providers Date of admission: 05/22/21 08:21 Expected date of discharge: 05/24/21 Attending physician: Al Kaur Consults: 05/22/21 14:31 Consult Physician Routine Consulting Provider: Eze Che Consult Reason/Comments: post wedge resection; Mary Carmen patient Do you want consulting provider notified?: Yes Consult Physician Routine Consulting Provider: Nafisa Maurer Consult Reason/Comments: dialysis patient Do you want consulting provider notified?: Yes Primary care physician: Catalino Funes [facility] Course: FINAL DIAGNOSIS: 1. Left lower lobe pulmonary nodule suspicious for malignancy, pathology pending discharge 2. History of melanoma of the right nose with resection little over a year ago 3. Current tobacco dependence 4. Hypertension 5. Chronic renal failure on hemodialysis Thursday//Thursday 6. Arthritis 7. Vaccinated against Covid 8. Small stable pneumothorax, expected PRINCIPAL PROCEDURE: 1. Left thoracoscopy, wedge resection mass left lower lobe HISTORY OF PRESENT ILLNESS: This is a 51-year-old gentleman who follows on an outpatient basis with Dr. Catalino Funes for primary care, Dr. Maurer for nephrology, and Dr. Lentz for pulmonology. He has a recent history of melanoma on the right side of his nose which was resected a little over a year ago. He had a recent computed tomography scan of the chest and abdomen in January 2021 demonstrating a new mass in the left lower lobe of the lung measuring 1.4 cm in diameter. PET scan was obtained and demonstrated uptake in the tumor. He underwent bronchoscopy with attempted transbronchial biopsy as well as brushings and washings, all of which were negative The patient was referred to Dr. Kaur from cardiothoracic surgery who reviewed the patient's CT and PET scans in great detail. The patient was recommended to undergo wedge resection for diagnosis. The usual perioperative course was discussed in detail with the patient, all risks and benefits were explained, all questions were answered, and consent was obtained to proceed with surgery. The patient was scheduled for surgery at the earliest possible date. HOSPITAL COURSE: The patient was brought to the hospital on 05/22/2021, taken to the preoperative area, prepared in the usual fashion, and subsequently taken to the operating room where Dr. Kaur completed a left thoracoscopy with wedge resection of the mass in the left lower lobe. Upon completion of surgery the patient was extubated and taken to the recovery room where he was recovered and monitored hemodynamically. He was eventually admitted to [address] [place] [address] for further monitoring and rehabilitation. He had no air leak in his chest tube and it was placed to waterseal the night of surgery. The following morning he had no air leak, chest x-ray was stable and his chest tube was discontinued without incident. He received dialysis. His oxygen was titrated down, he was tolerating oral diet, his pain was controlled, and he was ready to be discharged to home on postoperative day #2. He received written and verbal instruction regarding his medications, activity restrictions, signs and symptoms requiring physician notification, and follow-up appointments. Patient Condition at Discharge: Stable Plan - Discharge Summary Discharge Rx Participant: Yes New Discharge Prescriptions: New Acetaminophen Tab [Tylenol] 650 mg PO Q4HR PRN tab PRN Reason: Fever and/ or Mild Pain traMADol HCl [Ultram] 50 mg PO Q6HR PRN #24 tab PRN Reason: Pain Nicotine 14Mg/24Hr Patch [Habitrol] 1 patch TRANSDERM DAILY #7 patch Continue Sevelamer [Renvela] 1,600 mg PO AC-TID Losartan [Cozaar] 25 mg PO DAILY Auryxia 210 mg PO TID Discharge Medication List Sevelamer [Renvela] 1,600 mg PO AC-TID 04/16/21 [History] Auryxia 210 mg PO TID 04/17/21 [History] Losartan [Cozaar] 25 mg PO DAILY 04/17/21 [History] Acetaminophen Tab [Tylenol] 650 mg PO Q4HR PRN tab 05/24/21 [Rx] Nicotine 14Mg/24Hr Patch [Habitrol] 1 patch TRANSDERM DAILY #7 patch 05/24/21 [Rx] traMADol HCl [Ultram] 50 mg PO Q6HR PRN #24 tab 05/24/21 [Rx] Follow up Appointment(s)/Referral(s): Nafisa Maurer MD [STAFF PHYSICIAN] - As Needed Catalino Funes MD [Primary Care Provider] - As Needed Al Kaur MD [STAFF PHYSICIAN] - 06/13/21 1:15 pm Brennan Lentz DO [Doctor of Osteopathic Medicine] - 06/07/21 9:30 am Activity/Diet/Wound Care/Special Instructions: DISCHARGE INSTRUCTIONS: 1. No driving for 2 weeks, or until physician gives their ok. 2. No lifting, pushing, or pulling more than 10 pounds for 2 weeks. The physician will advise of any restriction changes. 3. Continue pain control per as needed orders. Alternate acetaminophen (Tylenol) and ibuprofen (Motrin/Advil) for pain. 4. Continue with incentive spirometry and splinting until otherwise directed by the physician. 5. Leave chest tube dressing for 48 hours. After that, remove all dressings and shower daily. 6. Routine incision care. No powders, lotions, ointments on incisions. 7. Please call surgeon/BALLISTIC EXPERT for temp greater than 101 F or purulent drainage from incisions. 8. Smoking cessation counseling and program information provided. 9. Narcotic medications were discussed with the patient, including the potential for misuse, addiction, and abuse. Opiod Start Talking form was reviewed with the patient. Discharge Disposition: HOME SELF-CARE
--- NOTE | 2021-05-24 18:38 | P.PN ---
Subjective Patient is seen for follow-up for end-stage renal disease. He is status post left lower lobe resection for lung nodule. Patient will be discharged today He is maintained on a Thursday schedule for dialysis. Objective - Vital Signs Vital signs: Vital Signs Temp 98.1 F 05/24/21 08:00 Pulse 81 05/24/21 08:00 Resp 18 05/24/21 08:00 BP 149/80 05/24/21 08:00 Pulse Ox 95 05/24/21 08:00 Intake & Output 05/23/21 05/24/21 05/24/21 18:59 06:59 18:59 Intake Total 300 240 Output Total 1000 250 Balance -700 -10 Intake: Oral 0 240 Hemodialysis 300 Output: Urine 200 250 Hemodialysis 800 - Exam Patient is awake, comfortable, not in any acute distress Examination of the heart S1 and S2 Exam shows lungs bilateral breath sounds are heard Abdomen is soft nontender Examination lower extremity shows no edema SIDING COREBOARD INSPECTOR exam grossly intact - Labs CBC & Chem 7: 05/24/21 08:54 05/24/21 08:54 Labs: Abnormal Lab Results - Last 24 Hours (Table) 05/24/21 05/24/21 Range/Units 08:54 08:54 RBC 3.08 L (4.30-5.90) m/uL Hgb 10.4 L (13.0-17.5) gm/dL Hct 32.2 L (39.0-53.0) % MCV 104.4 H (80.0-100.0) fL Sodium 134 L (137-145) mmol/L Potassium 5.2 H (3.5-5.1) mmol/L BUN 47 H (9-20) mg/dL Creatinine 7.70 H* (0.66-1.25) mg/dL Glucose 108 H (74-99) mg/dL Assessment and Plan Assessment: 1. End-stage renal disease on hemodialysis on a Thursday schedule via left arm AV fistula 2. Left lung nodule status post thoracoscopy and wedge resection of the left lower lobe 3. CK D mineral bone disorder 4. Tobacco dependence 5. Hypertension with CK D stage 5 Plan: Hemodialysis in a.m. as outpatient. Patient can be discharged from nephrology standpoint
== END 2021-05-24 11:16 | disposition home or self-care (01) | DRG 166 ==
LOC: 2ORMAIN 08:21 → 3SCARD 13:28
PROVIDERS: ADMIT Thoracic Surgery (Cardiothoracic Vascular Surgery); ATTEND Thoracic Surgery (Cardiothoracic Vascular Surgery)
PROC: 0BBG4ZX Excision of Left Upper Lung Lobe, Percutaneous Endoscopic Approach, Diagnostic (ICD-10-PCS; principal; 2021-05-22 10:15)
PROC: 5A1D70Z Performance of Urinary Filtration, Intermittent, Less than 6 Hours Per Day (ICD-10-PCS; 2021-05-23)
DX: C34.32 Malignant neoplasm of lower lobe, left bronchus or lung (principal); N18.6 End stage renal disease; I12.0 Hypertensive chronic kidney disease with stage 5 chronic kidney disease or end stage renal disease; M19.90 Unspecified osteoarthritis, unspecified site; F17.200 Nicotine dependence, unspecified, uncomplicated; M89.9 Disorder of bone, unspecified; I27.20 Pulmonary hypertension, unspecified; Z71.6 Tobacco abuse counseling; Z99.2 Dependence on renal dialysis; Z85.820 Personal history of malignant melanoma of skin; Z79.899 Other long term (current) drug therapy
CPT/HCPCS: 71045; 71046; 80048; 85025; 85027; 86850; 86900; 86901; 88307; 88331; 88341; 88342; 90935; 94640

== ENCOUNTER → 2021-10-09 | Outpatient (CLI) | payer MEDICARE, OTHER | END | disposition home or self-care (01) | LOC: RADCTMAIN 10-08 17:11 | PROVIDERS: ATTEND Internal Medicine | DX: C34.10 Malignant neoplasm of upper lobe, unspecified bronchus or lung (principal) | CPT/HCPCS: 82565; 84520 ==

== ENCOUNTER → 2021-11-07 | Outpatient (CLI) | payer MEDICARE, OTHER ==
--- NOTE | 2021-11-08 22:10 | CT ---
EXAMINATION TYPE: CT chest w con CT DLP: 697 mGycm, Automated exposure control for dose reduction was used. DATE OF EXAM: 11/07/2021 8:45 AM COMPARISON: Chest CT 04/17/2021, PET 04/05/2021 CLINICAL INDICATION:Male, 51 years old with history of C34.12 Lung ca; TECHNIQUE: Multiple axial images were obtained through the chest. Sagittal and coronal reformats were created for review. Contrast used: none. Oral contrast used: none. FINDINGS: LUNGS/ PLEURA: Left lower lobe suspected post surgical changes with small pleural effusion and some irregular soft t issue/ opacities near the suture site. Unclear if these represent surgical change or infectious/infla mmatory process. Thickening of the interlobular septa is present. The left upper lung opacity anteriorly is not signif icantly changed from prior PET on 04/05/2021 and was not FDG avid. 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 No evidence of pneumothorax. No right pleural effusion or focal consolidation. AIRWAY: Patent and unremarkable. HEART: The heart is mildly enlarged for size there is moderate to severe coronary artery atherosclero sis. MEDIASTINUM: No gross evidence of adenopathy. Ill-defined soft tissue within the fat likely third spa cing of fluid or congestion. There are some enlarged lymph nodes seen throughout the mediastinum with fluid within the pericardial recesses. VASCULATURE: No aortic aneurysm. Pulmonary trunk is dilated up to 5.0 cm. There is persistent dilate d superficial vessels on the left chest wall. There is dilation of the left subclavian vein relative narrowing as it enters the mediastinum near the origin of the brachiocephalic vein. Severe atheroscle rosis of the arterial vasculature. MUSCULOSKELETAL: No acute osseous abnormalities SOFT TISSUES/LYMPH NODES: Unremarkable. LOWER NECK: No significant findings. UPPER ABDOMEN: Atrophic kidneys bilaterally with renal cysts. IMPRESSION: 1. Postsurgical changes with irregular shaped soft tissue density along irregular suspected suture. Unclear whether this is infectious/inflammatory process versus postsurgical change. Continued attenti on on follow-up imaging. 2. New pulmonary vascular congestion with small left pleural effusion and findings of pulmonary vasc ular hypertension, correlate for heart failure. 3. Multiple tortuous vessels in the left upper chest wall with relative dilation of the left subclav joe vein with narrowing near the expected location of the confluence with the internal jugular vein. Correlate for stenosis.
== END | disposition home or self-care (01) ==
LOC: RADCTMAIN 07:56
PROVIDERS: ATTEND Internal Medicine
DX: C34.10 Malignant neoplasm of upper lobe, unspecified bronchus or lung (principal); J90 Pleural effusion, not elsewhere classified
CPT/HCPCS: 71260; Q9967

== ENCOUNTER → 2021-11-16 | Outpatient (CLI) | payer MEDICARE, OTHER ==
--- NOTE | 2021-11-17 03:05 | MR ---
EXAMINATION TYPE: MR brain wo/w con DATE OF EXAM: 11/16/2021 COMPARISON: None HISTORY: Sudden left sided weakness and numbness, involuntary head twitching, seizure and head injury . Lung cancer. CONTRAST: Standard multiplanar, multisequence MRI departmental protocol images were obtained without contrast a nd with 8.5 mL intravenous Gadavist gadolinium contrast. Diffusion images show no sign of an acute infarct. There is some cerebral cortical atrophy. There is no mass effect or midline shift. No sign of intracranial hemorrhage. Brainstem is intact. No evidence of posterior fossa mass. Corpus callosum is intact. Sella turcica appears normal. No evidence of orb ital mass. There is 1 cm area of increased signal in the doran-white matter junction of the left anter ior temporal lobe. There is some small areas of increased signal adjacent to the lateral ventricles i n the white matter on the T2 and FLAIR images. There is normal enhancement of the venous sinuses. No pathologic intracranial enhancement. IMPRESSION: Increased signal in the white matter as above likely related to microvascular ischemia. Demyelinating disease not excluded. No evidence of metastatic disease. Mild cerebral atrophy.
== END | disposition home or self-care (01) ==
LOC: RADMRIMAIN 08:55
PROVIDERS: ATTEND Internal Medicine
DX: C34.12 Malignant neoplasm of upper lobe, left bronchus or lung (principal); G31.9 Degenerative disease of nervous system, unspecified
CPT/HCPCS: 70553; A9585

== ENCOUNTER → 2022-03-12 | Outpatient (CLI) | payer MEDICARE, OTHER ==
--- NOTE | 2022-03-12 17:38 | CT ---
EXAMINATION TYPE: CT chest w con DATE OF EXAM: 03/12/2022 COMPARISON: 11/07/2021 HISTORY: Lung cancer CT DLP: 447 mGycm, Automated exposure control for dose reduction was used. CONTRAST: Performed injected with 70 mL of Isovue 300. TECHNIQUE: Axial images were obtained at 5 mm thick sections. Reconstructed images are reviewed on [employer]arp computer in the coronal plane. FINDINGS: Portion of the thyroid visualized is normal. There is a 1.0 cm nodule in the anterior lateral left upper lung field. Series 4 image 17. There there is a small left pleural effusion. Heart size is mildly prominent. Coronary artery calcification is present. Is a 3.3 x 1.8 cm density i n the posterior left upper lung field. Series 4 image 30. No enlarged mediastinal or hilar adenopathy is evident. The ascending aorta diameter at the level o f the main pulmonary artery is 3.8 cm. The main pulmonary artery diameter at the bifurcation is 4.7 cm. Caudally from pulmonary hypertension. Main pulmonary artery is slightly diminished in size compar ed to the prior study of 5.[address] sections are obtained through the upper abdomen. Multiple small cysts are on the bilateral kidneys. IMPRESSIONS: 1. Left upper lobe density may be slightly larger than the comparison. 2. Postsurgical density in the left lower lobe appears similar to the comparison. 3. Pulmonary hypertension
== END | disposition home or self-care (01) ==
LOC: RADCTMAIN 09:19
PROVIDERS: ATTEND Internal Medicine
DX: C34.12 Malignant neoplasm of upper lobe, left bronchus or lung (principal); J98.4 Other disorders of lung; I27.20 Pulmonary hypertension, unspecified
CPT/HCPCS: 82565; 84520; 71260; 36415; Q9967

== ENCOUNTER 2022-03-14 08:15 | Day surgery (SDC) | payer MEDICARE, OTHER ==
[2022-03-11 16:05] VITALS: BMI 25.7
[~2022-03-14 08:15] MED LIST changes: +ACETAMINOPHEN TAB 500 MG TAB PO PRN; -ALBUTEROL NEB (CONC) 2.5 MG/0.5 ML INHALATION ONE; -ATROPINE SULFATE 0.4 MG/ML 1 ML VIAL IM ONE; +DEXAMETHASONE SOD PHOSPHATE 4 MG/ML 1 ML VIAL IV ONE; +HEPARIN SODIUM,PORCINE/PF 5,000 UNIT/0.5 ML SYRINGE SQ PRN; +LACTATED RINGERS 1,000 ML IV SCH; -LIDOCAINE 2% (PF) 20 MG/ML 5 ML VIAL INHALATION ONE; -LIDOCAINE VISCOUS 300 MG/15 ML CUP MUCOUS MEM ONE; +MIDAZOLAM 2 MG/2 ML VIAL IV PRN; +ONDANSETRON 4 MG/2 ML VIAL IVP ONE; +SCOPOLAMINE 1 MG/72 HR PATCH TRANSDERM ONE; -SODIUM CHLORIDE 0.9% 1,000 ML IV SCH
[2022-03-14 08:41] LABS: Glucose,Whole Blood 107 mg/dL (70-110)
[2022-03-14 08:48] LABS: HCT 30.6 % (39.0-53.0); HGB 10.4 gm/dL (13.0-17.5); MCH 34.4 pg (25.0-35.0); MCHC 34.2 g/dL (31.0-37.0); MCV 100.5 fL (80.0-100.0); Macrocytosis Slight; Mean Platelet Volume 7.3; Platelet Count 216 k/uL (150-450); RBC 3.04 m/uL (4.30-5.90); RDW 14.5 % (11.5-15.5); WBC 5.9 k/uL (3.8-10.6)
[2022-03-14] MEDS ORDERED: SODIUM CHLORIDE 0.9% 1,000 ML IV ONE (08:50)
[2022-03-14 09:00] LABS: Albumin 4.1 g/dL (3.5-5.0); Calcium 9.5 mg/dL (8.4-10.2); Total Bilirubin 0.7 mg/dL (0.2-1.3); Total Protein 7.4 g/dL (6.3-8.2)
[2022-03-14 09:06] LABS: Potassium 5.5 mmol/L (3.5-5.1)
--- NOTE | 2022-03-14 09:46 | P.GSHP ---
History of Present Illness H&P Date: 03/14/22 Chief Complaint: Left inguinal hernia 51-year-old male with personal history of previous right inguinal hernia and umbilical/ventral hernia repair in the past presents with left groin swelling. This is been increasing in size. More pain lately. Here today for elective rep air. Past Medical History Past Medical History: Cancer, GERD/Reflux, Hypertension, Renal Disease Additional Past Medical History / Comment(s): left upper arm fistula,Hemodialysis [facility] for 4hrs,still has urine production, left inguinal hernia, hx. of skin cancer,had stge 1 lung CA-dx 2021-no chemo or radiation History of Any Multi-Drug Resistant Organisms: None Reported Past Surgical History: Orthopedic Surgery Additional Past Surgical History / Comment(s): left hand carpel tunnel release. Fistula for dialysis,rt inguinal hernia,umbilical hernia repair,neck fusion,skin CA removed w/ skin graft,AV graft left lower arm-no longer working(mult procedures),left lower lung removed section Past Anesthesia/Blood Transfusion Reactions: No Reported Reaction Additional Past Anesthesia/Blood Transfusion Reaction / Comment(s): no problems w/ prior blood transfusion Smoking Status: Former smoker - Past Family History Mother Family Medical History: No Reported History Medications and Allergies Home Medications Medication Instructions Recorded Confirmed Type Auryxia 210 mg PO BID 04/17/21 03/11/22 History Acetaminophen Tab [Tylenol] 650 mg PO Q4HR PRN tab 05/24/21 03/11/22 Rx Calcium Acetate [Phoslo] 667 mg PO TID-W/MEALS 03/11/22 03/11/22 History amLODIPine 10 mg PO QAM 03/11/22 03/11/22 History carvediloL 25 mg PO BID 03/11/22 03/11/22 History clonazePAM [Klonopin] 0.5 mg PO QAM 03/11/22 03/11/22 History Allergies Allergy/AdvReac Type Severity Reaction Status Date / Time No Known Allergies Allergy Verified 03/11/22 15:51 Surgical - Exam Physical exam: General: Well-developed, well-nourished HEENT: Normocephalic, sclerae nonicteric Abdomen: Nontender, nondistended, reducible left inguinal hernia, no palpable hernia on right Extremities: No edema Neuro: Alert and oriented Assessment and Plan (1) Left inguinal hernia Narrative/Plan: 51-year-old male with left inguinal hernia. We'll proceed with da Wilfredo assisted laparoscopic repair left inguinal hernia with mesh, possible open, possible bilateral. Risks of bleeding, infection, recurrence, bladder and bowel injury, numbness, nerve injury, conversion to an open procedure were discussed with the patient. The patient understands and wishes to proceed. Current Visit: Yes Status: Acute Code(s): K40.90 - UNIL INGUINAL HERNIA, W/O OBST OR GANGR, NOT SPCF RECUR SNOMED Code(s): 998865782
[2022-03-14] MEDS ORDERED: LIDOCAINE 2% INJ 20 MG/ML (2 ML VIAL) ONE (10:09)
[2022-03-14] MEDS ORDERED: NEOSTIGMINE 1 MG/ML 10 ML VIAL ONE (10:09)
[2022-03-14] MEDS ORDERED: fentaNYL (PF) 50 MCG/ML 2 ML AMP ONE (10:09)
[2022-03-14] MEDS ORDERED: PROPOFOL 10 MG/ML 20 ML VIAL IV ONE (10:09)
[2022-03-14] MEDS ORDERED: SUCCINYLCHOLINE CHLORIDE 200 MG/10 ML VIAL IV ONE (10:09)
[2022-03-14] MEDS ORDERED: MIDAZOLAM 2 MG/2 ML VIAL ONE (10:09)
[2022-03-14] MEDS ORDERED: GLYCOPYRROLATE 0.2 MG/ML 2 ML VIAL ONE (10:09)
[2022-03-14] MEDS ORDERED: ROCURONIUM 10 MG/ML (5 ML VIAL) IV ONE (10:09)
[2022-03-14] MEDS ORDERED: BUPIVACAIN-EPI 0.25%-1:200,000 30 ML VIAL SQ ONE (10:45)
--- NOTE | 2022-03-14 11:46 | P.OP ---
Date of Procedure: 03/14/22 Procedure(s) Performed: PREOPERATIVE DIAGNOSIS: Left inguinal hernia POSTOPERATIVE DIAGNOSIS: Moderate sized indirect left inguinal hernia PROCEDURE: Laparoscopic da Wilfredo assisted repair left inguinal hernia with mesh SURGEON: Dr. Alonzo ANESTHESIA: General OPERATIVE PROCEDURE DETAILS: Patient was placed in the operating table in the supine position. The patient was placed under general anesthesia. The abdomen was prepped and draped in usual sterile fashion. A small curvilinear supraumbilical incision was made. The fascia was retracted anteriorly with Jason forceps. The Veress needle was inserted. The saline drop test was normal. Insufflation took place to 15 mmHg. An 8 mm trocar was placed into the peritoneal cavity. 2 additional 8 mm trochars were placed in the right upper quadrant and left upper quadrant under visualization. The robotic arms were then brought in and docked into place. The fenestrated bipolar was used in the left arm and the laparoscopic caty was utilized in the right arm. A 30 8 mm scope was used in the up position. The peritoneal cavity was inspected. The patient had evidence of a previous mesh plug repair on the right. There is no visible hernia on the right. On the left-hand side he had a moderate sized indirect inguinal hernia. The peritoneum was incised in a horizontal fashion cephalad to the internal inguinal ring. Following that careful dissection of the preperitoneal space took place. This took place using both electrocautery, sharp dissection but primarily blunt dissection. Visualization of the pubic tubercle and Hector's ligament took place medially. Full dissection took place laterally as well. The hernia sac was fully dissected. Once we had adequate space the [id number] Progrip mesh was advanced into the preperitoneal space and flattened out appropriately to cover all potential hernia sites. No sutures were used. The peritoneal defect was then closed using a absorbable 2-0 VLok suture. The hernia sac was incorporated into the peritoneal closure to help prevent future recurrence. The pneumoperitoneum was then evacuated. The skin of all 3 sites was closed using a 4-0 Monocryl stitch. Skin glue was then applied. TYPE OF MESH USED: 15 x 10 cm Prograf LOCATION OF MESH: Preperitoneal FIXATION: None PREOPERATIVE DISCUSSION ON SMOKING CESSASTION: Yes PREOPERATIVE DISCUSSION ON MORBID OBESITY: Yes PREOPERATIVE DISCUSSION ON APPROPRIATE USE OF NARCOTIC USE: Yes PREOPERATIVE EDUCATION: Multi Modal, Smoking Cessation and Weight Loss with BMI over 35. DISPOSITION: Stable to recovery room
[2022-03-14] MEDS ORDERED: ACETAMINOPHEN TAB 325 MG TAB PO SCH (12:00)
[2022-03-14 12:09] VITALS: TEMP 98.4
[2022-03-14] MEDS: HYDROmorphone 0.5 MG/0.5 ML SYRINGE IVP PRN ×3 (12:25→12:50)
[2022-03-14 12:26] VITALS: RESP 16
[2022-03-14 14:19] VITALS: BP 154/79; PULSE 71
== END 2022-03-14 14:32 | disposition home or self-care (01) ==
LOC: OR 08:15
PROVIDERS: ATTEND Surgery
DX: K40.90 Unilateral inguinal hernia, without obstruction or gangrene, not specified as recurrent (principal); K21.9 Gastro-esophageal reflux disease without esophagitis; I10 Essential (primary) hypertension; N28.9 Disorder of kidney and ureter, unspecified; Z85.828 Personal history of other malignant neoplasm of skin; Z85.118 Personal history of other malignant neoplasm of bronchus and lung; Z98.890 Other specified postprocedural states; Z87.891 Personal history of nicotine dependence; Z79.899 Other long term (current) drug therapy
CPT/HCPCS: 80053; 85027; 49650; C1781; J2250; J0330; J1100; J2710; J0690; J2405; J3010; J2704; J1170; J1644; J2001

== ENCOUNTER 2022-06-16 11:03 | Day surgery (SDC) | payer MEDICARE, OTHER ==
[~2022-06-16 11:03] MED LIST changes: -ACETAMINOPHEN TAB 500 MG TAB PO PRN; -DEXAMETHASONE SOD PHOSPHATE 4 MG/ML 1 ML VIAL IV ONE; -HEPARIN SODIUM,PORCINE/PF 5,000 UNIT/0.5 ML SYRINGE SQ PRN; -MIDAZOLAM 2 MG/2 ML VIAL IV PRN; -ONDANSETRON 4 MG/2 ML VIAL IVP ONE; -SCOPOLAMINE 1 MG/72 HR PATCH TRANSDERM ONE
[2022-06-16 11:12] VITALS: TEMP 98
[2022-06-16] MEDS ORDERED: SODIUM CHLORIDE 0.9% 500 ML IV ONE (11:14)
--- NOTE | 2022-06-16 13:09 | P.GSHP ---
History of Present Illness H&P Date: 06/16/22 Chief Complaint: History of diarrhea This a 48 for male with diarrhea. Patient presents today for colonoscopy. Past Medical History Past Medical History: Cancer, GERD/Reflux, Hypertension, Renal Disease Additional Past Medical History / Comment(s): renal failure, hemodialysis , left upper arm fistula, hx. stage 1 lung cancer 2021-had surg., hx. of skin cancer. rectal bleeding, hemorrhoids History of Any Multi-Drug Resistant Organisms: None Reported Past Surgical History: Back Surgery, Hernia Repair, Orthopedic Surgery Additional Past Surgical History / Comment(s): left hand CTS. Fistula for dialysis. cervical fusion, skin cancer removed from nose w/skin graft, left lower lung wedge resection Past Anesthesia/Blood Transfusion Reactions: No Reported Reaction Additional Past Anesthesia/Blood Transfusion Reaction / Comment(s): no problems w/prior transfusion Smoking Status: Former smoker - Past Family History Mother Family Medical History: No Reported History Medications and Allergies Home Medications Medication Instructions Recorded Confirmed Type Auryxia 210 mg PO BID 04/17/21 06/13/22 History Calcium Acetate [Phoslo] 667 mg PO TID-W/MEALS 03/11/22 06/13/22 History amLODIPine 10 mg PO QAM 03/11/22 06/13/22 History carvediloL 25 mg PO BID 03/11/22 06/13/22 History clonazePAM [Klonopin] 0.5 mg PO BID 03/11/22 06/13/22 History Fluticasone/Umeclidin/Vilanter 1 puff INHALATION DAILY 06/13/22 06/13/22 History [Trelegy Ellipta 200-62.5-25] Allergies Allergy/AdvReac Type Severity Reaction Status Date / Time No Known Allergies Allergy Verified 06/13/22 08:31 Surgical - Exam Vital Signs Temp Pulse Resp BP Pulse Ox 98.0 F 81 18 155/92 92 L 06/16/22 11:07 06/16/22 11:07 06/16/22 11:07 06/16/22 11:07 06/16/22 11:07 - General well developed, well nourished, no distress - Eyes PERRL - ENT normal pinna, normal nares - Neck no masses - Respiratory normal expansion - Cardiovascular Rhythm: regular - Abdomen Abdomen: soft, non tender Results - Labs 06/16/22 11:14 Abnormal Lab Results - Last 24 Hours (Table) 06/16/22 Range/Units 11:14 Potassium 6.2 H* (3.5-5.1) mmol/L Diabetes panel 06/16/22 Range/Units 11:14 Potassium 6.2 H* (3.5-5.1) mmol/L Pituitary panel 06/16/22 Range/Units 11:14 Potassium 6.2 H* (3.5-5.1) mmol/L Adrenal panel 06/16/22 Range/Units 11:14 Potassium 6.2 H* (3.5-5.1) mmol/L Assessment and Plan Assessment: Diarrhea. We'll perform colonoscopy.
[2022-06-16] MEDS ORDERED: PROPOFOL 10 MG/ML 20 ML VIAL IV ONE (13:10)
--- NOTE | 2022-06-16 13:24 | P.OP ---
Date of Procedure: 06/16/22 Preoperative Diagnosis: History of diarrhea Postoperative Diagnosis: Rectal biopsy pathology pending Poor prep Procedure(s) Performed: Colonoscopy Anesthesia: MAC Surgeon: Adalberto Oliver Pathology: other (Rectum) Condition: stable Disposition: PACU Description of Procedure: The patient's placed on the endoscopy table in the lateral position. He received IV sedation. Digital rectal exam was performed. This revealed no abnormalities. The flexible colonoscope was then placed patient anus and passed with colon. Scope could not be passed beyond the transverse colon secondary to poor colon prep. Patient had a large amount of liquid black stool due to his iron replacement. The scope withdrawn. The visualized ascending and sigmoid colon appeared normal. Scope back the rectum and this appeared normal however a biopsy was performed due to his complaints of diarrhea. Scope was withdrawn for patient.
[2022-06-16 13:30] VITALS: RESP 16
[2022-06-16 13:45] VITALS: BP 136/74; PULSE 79
== END 2022-06-16 14:00 | disposition home or self-care (01) ==
LOC: ORWHC2ENDO 11:03
PROVIDERS: ATTEND Surgery
DX: R19.7 Diarrhea, unspecified (principal); Z85.118 Personal history of other malignant neoplasm of bronchus and lung; F12.90 Cannabis use, unspecified, uncomplicated; I12.0 Hypertensive chronic kidney disease with stage 5 chronic kidney disease or end stage renal disease; N18.6 End stage renal disease; Z99.2 Dependence on renal dialysis; Z79.899 Other long term (current) drug therapy; Z87.19 Personal history of other diseases of the digestive system; Z98.1 Arthrodesis status; E87.5 Hyperkalemia
CPT/HCPCS: 88305; 84132; 45380; J2704